=== PATIENT | male | born 1975 | race Caucasian/White ===

== ENCOUNTER 2020-06-14 20:19 | Emergency (ER) | payer OTHER, SELFPAY ==
[2020-06-14] MEDS ORDERED: Ketorolac Tromethamine 60 MG/2 ML VIAL ONE (21:04)
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
== END 2020-06-14 21:27 | disposition home or self-care (01) ==
LOC: NAV ERS 20:19
DX: S30.0XXA Contusion of lower back and pelvis, initial encounter (principal); S20.222A Contusion of left back wall of thorax, initial encounter; S20.221A Contusion of right back wall of thorax, initial encounter; V43.52XA Car driver injured in collision with other type car in traffic accident, initial encounter
CPT/HCPCS: 72072; 72100; 96372; J1885

== ENCOUNTER 2024-05-08 20:03 | Emergency (ER) | payer SELFPAY ==
[2024-05-08] MEDS ORDERED: Sodium Chloride 0.9% 1,000 ML ONE (20:30)
[2024-05-08 20:37] LABS: #Basophils 0.1 thou/uL (0.0-0.2); #Eosinphils 0.3 thou/uL (0.0-0.7); #Lymphocytes 2.1 thou/uL (1.20-3.40); #Monocytes 0.6 thou/uL (0.11-0.59); #Neutrophils 5.6 thou/uL (1.40-6.50); %Basophils 1.2 % (0.0-1.0); %Eosinophils 3.9 % (0.0-10.0); %Monocytes 6.7 % (0.0-10.0); %Neutrophils 64.3 % (42.0-75.0); Hematocrit 44.8 % (42.0-52.0); Hemoglobin 14.5 g/dL (14.0-18.0); Mean Corpuscular HGB CONC 32.3 g/dL (32.0-36.0); Mean Corpuscular Hemoglobin 29.1 pg (27.0-31.0); Mean Platelet Volume 7.1 fL (7.4-10.4); Platelet Count 336 10x3/uL (130-400); RBC Distribution Width 11.9 % (11.5-14.5); Red Blood Cell (RBC) Count 4.98 mill/uL (4.70-6.10); White Blood Cell (WBC) Count 8.7 10x3/uL (4.8-10.8)
[2024-05-08 20:50] LABS: ALT (SGPT) 46 U/L (8-55); AST (SGOT) 30 U/L (5-34); Albumin 4.2 g/dL (3.5-5.0); Alkaline Phosphatase 77 U/L (40-110); Anion Gap 16 mmol/L (10-20); BUN (Urea Nitrogen) 11 mg/dL (8.9-20.6); Bilirubin, Total 0.4 mg/dL (0.2-1.2); Calc. Creatinine Clearance 0 mL/min (70-130); Calcium 9.4 mg/dL (7.8-10.44); Carbon Dioxide 25 mmol/L (22-29); Chloride 104 mmol/L (98-107); Estimated GFR 103; Globulin 3.3 g/dL (2.4-3.5); Glucose 107 mg/dL (70-105); Potassium 3.5 mmol/L (3.5-5.1); Protein, Total 7.5 g/dL (6.0-8.3); Sodium 141 mmol/L (136-145)
[2024-05-08] MEDS ORDERED: Sulfameth/Trimethoprim DS 800-160mg TAB ONE (21:10)
== END 2024-05-08 21:20 | disposition home or self-care (01) ==
LOC: NAV ERS 20:03
DX: L03.116 Cellulitis of left lower limb (principal)
CPT/HCPCS: 80053; 85025; J7050